=== PATIENT | male | born 1995 | race Caucasian/White ===

== ENCOUNTER 2016-11-18 21:37 | Emergency (ER) | payer OTHER ==
[2016-11-18 21:51] VITALS: TEMP 98.2
--- NOTE | 2016-11-18 21:52 | CPEKG ---
Heart Rate: 134 RR Interval: 448 P-R Interval: 120 QRSD Interval: 90 QT Interval: 312 QTC Interval: 466 P Vernon: 62 QRS Vernon: 153 T Wave Vernon: 52 EKG Severity - ABNORMAL ECG - EKG Impression: SINUS TACHYCARDIA EKG Impression: RIGHT AXIS DEVIATION EKG Impression: BORDERLINE Q WAVES IN INFERIOR LEADS EKG Impression: INFERIOR Q WAVES, PROBABLY NORMAL VARIATION Electronically Signed By: Giuliana Dietrich 18-Nov-2016 23:16:22
--- NOTE | 2016-11-18 22:02 | EDPHY ---
H & P Stated Complaint: Chest pain HPI/ROS: CHIEF COMPLAINT: Chest discomfort. HISTORY OF PRESENT ILLNESS: This patient is a 21 year old male complaining of chest discomfort and rapid heart rate developing over the past two days. He began a new dosage of Adderall at that time, switching from two 20mg IR tablets to one 30mg XR and one 10mg IR. He took his medication at 10:00 this morning. He initially developed chest discomfort and felt "weird" circulation in his arms, and then noted "electric" feelings in his chest intermittently. He endorses a dull chest pain which waxes and wanes. At dinner this evening, he noted his resting heart rate was around 170, and later seemed irregular. He asked his friends to walk him to the emergency department, and began "blacking out" and felt as if he might faint while walking. He states he lost his balance but denies falling. Currently, his chest feels tight and he continues to experience a rapid heart rate. He endorses nausea. He denies vomiting, shortness of breath, or other associated symptoms. He did consume some marijuana edibles this afternoon, but states he is confident about the dosage and his usual reactions to this. REVIEW OF SYSTEMS: A ten point review of systems was performed and is negative with the exception of the items mentioned in the HPI. Past medical history: ADHD (Adderall, followed by Dr. Miguel Luna). Past surgical history: Open femur fracture reduction. Family history: Noncontributory Social history: Nonsmoker. Occasional marijuana use. Denies illicit drug use. General Appearance: Alert. Vital signs reviewed. Blood pressure 162/109. Heart rate at triage 100, heart rate on EKG 134. Eyes: Pupils equal and round, no conjunctival injection, no discharge. Anicteric. ENT, Mouth: Mucous membranes are moist, no oropharyngeal erythema or edema. Neck: No lymphadenopathy, supple. Respiratory: Lungs are clear to auscultation; no wheezes, rales, or rhonchi. Cardiovascular: Tachycardic. Regular rhythm; no murmur, rub, or gallop. Gastrointestinal: Abdomen is soft and nontender, no masses or organomegaly, bowel sounds normal. Skin: Warm and dry, no rashes on exposed skin, normal color. Back: Nontender to palpation over the thoracolumbar spine. No CVAT. Extremities: No lower extremity edema, no calf tenderness or swelling. Neurological: Alert and oriented. Moving all four extremities easily and equally. Psychiatric: Normal affect. - Personal History Current Tetanus/Diphtheria Vaccine: Unsure Current Tetanus Diphtheria and Acellular Pertussis (TDAP): Unsure Tetanus Vaccine Date: < 10 YEARS - Medical/Surgical History Hx Asthma: No Hx Chronic Respiratory Disease: No Hx Diabetes: No Hx Cardiac Disease: No Hx Renal Disease: No Hx Cirrhosis: No Hx Alcoholism: No Hx HIV/AIDS: No Hx Splenectomy or Spleen Trauma: No Other PMH: ORIF left leg - Social History Smoking Status: Former smoker Constitutional: Initial Vital Signs Temperature (C) 36.8 C 11/18/16 21:41 Heart Rate 100 11/18/16 21:41 Respiratory Rate 16 11/18/16 21:41 Blood Pressure 162/109 H 11/18/16 21:41 O2 Sat (%) 98 11/18/16 21:41 O2 Delivery Mode Room Air Allergies/Adverse Reactions: No Known Allergies Allergy (Unverified 08/16/12 17:40) Home Medications: Medication Instructions Recorded Miscellaneous Medical Supply [NO 1 ea MISC AD 08/16/12 HOME MEDS] Medical Decision Making - Diagnostics EKG Interpretation: The 12 lead EKG was interpreted by myself: sinus tachycardia, rate 134. See hard copy and/or "tracemaster" electronic copy for interpretation. Imaging Results: Imaging Impressions Chest X-Ray 11/18/16 22:43 Impression: No acute abnormality. ED Course/Re-evaluation: 21 year old male presents with tachycardia and chest discomfort developing over the past two days. This may be related to a recently changed prescription for Adderall, which began shortly before symptom onset. Plan for EKG, labs including CBC, BMP, and Troponin. Plan to administer 1mg IV Ativan for symptom relief. EKG shows sinus tachycardia, rate 134. Patient was re-evaluated after receiving 1 L of IV fluids, 1 mg IV Ativan. He is feeling much calmer. Heart rate is between 100 and 110. Blood pressure 129/ 87. Labs reviewed and within normal limits. TSH pending. I suspect that his tachycardia and chest discomfort are secondary to the new Adderall XR. He has also had some edible marijuana this afternoon which might or might not be contributing. He took Adderall extended release approximately 12 hours ago. I do not find evidence of myocardial ischemia. No evidence of stroke. Half-life of this medication is 9-14 hours and I would expect his symptoms to begin to subside soon. He is comfortable returning home. He will contact his prescribing physician, Dr. Luna, tomorrow morning and let him know about the events of today. We reviewed the danger signs that should prompt him to return to the emergency department. Differential Diagnosis: Considered a differential diagnosis that includes but is not limited to medication effect, use of illicit substances, cardiac arrhythmia--atrial fibrillation/flutter, volume depletion, hyperthyroidism. - Data Points Laboratory Results: Laboratory Results 11/18/16 22:17 11/18/16 22:17 11/18/16 11/18/16 22: 22:17 WBC 8.16 10^3/uL 10^3/uL (3.80-9.50) RBC 6.06 10^6/uL 10^6/uL (4.40-6.38) Hgb 17.4 g/dL g/dL (13.7-17.5) Hct 50.3 % % (40.0-51.0) MCV 83.0 fL fL (81.5-99.8) MCH 28.7 pg pg (27.9-34.1) MCHC 34.6 g/dL g/dL (32.4-36.7) RDW 13.2 % % (11.5-15.2) Plt Count 316 10^3/uL 10^3/uL (150-400) MPV 10.1 fL fL (8.7-11.7) Neut % (Auto) 56.7 % % (39.3-74.2) Lymph % (Auto) 30.4 % % (15.0-45.0) [place] % (Auto) 11.4 % % (4.5-13.0) Eos % (Auto) 0.2 % L % (0.6-7.6) Baso % (Auto) 0.7 % % (0.3-1.7) Nucleat RBC Rel Count 0.0 % % (0.0-0.2) Absolute Neuts (auto) 4.62 10^3/uL 10^3/uL (1.70-6.50) Absolute Lymphs (auto) 2.48 10^3/uL 10^3/uL (1.00-3.00) Absolute Monos (auto) 0.93 10^3/uL H 10^3/uL (0.30-0.80) Absolute Eos (auto) 0.02 10^3/uL L 10^3/uL (0.03-0.40) Absolute Basos (auto) 0.06 10^3/uL 10^3/uL (0.02-0.10) Absolute Nucleated RBC 0.00 10^3/uL 10^3/uL (0-0.01) Immature Gran % 0.6 % % (0.0-1.1) Immature Gran # 0.05 10^3/uL 10^3/uL (0.00-0.10) Sodium 139 mEq/L mEq/L (134-144) Potassium 4.1 mEq/L mEq/L (3.5-5.2) Chloride 100 mEq/L mEq/L (97-110) Carbon Dioxide 23 mEq/l mEq/l (22-31) Anion Gap 16 mEq/L mEq/L (8-16) BUN 17 mg/dL mg/dL (7-23) Creatinine 0.8 mg/dL mg/dL (0.7-1.3) Estimated GFR > 60 Glucose 98 mg/dL mg/dL (70-100) Calcium 10.3 mg/dL mg/dL (8.5-10.4) Troponin I < 0.012 ng/mL ng/mL (0.000-0.034) Medications Given: Discontinued Medications Sodium Chloride (Ns) 1,000 mls @ 0 mls/hr IV EDNOW ONE; Wide Open PRN Reason: Protocol Stop: 11/18/16 22:15 Last Admin: 11/18/16 22:23 Dose: 1,000 mls Sodium Chloride (Ns) 1,000 mls @ 0 mls/hr IV ONCE ONE PRN Reason: Wide Open Stop: 11/18/16 23:16 Last Admin: 11/18/16 23:19 Dose: 1,000 mls Lorazepam (Ativan Injection) 1 mg IVP EDNOW ONE Stop: 11/18/16 22:15 Last Admin: 11/18/16 22:24 Dose: 1 mg Departure - Departure Disposition: Home, Routine, Self-Care Clinical Impression: Tachycardia Condition: Good Instructions: Tachycardia (ED) Additional Instructions: I think that your rapid heartbeat and chest discomfort are because of the Adderall XR that you took earlier. I would expect the effects of this medication to began to wear off shortly. However, you may continue to experience rapid heartbeat tonight. If you have persistent rapid heartbeat, feel lightheaded or faint, have persistent severe chest pain, or have trouble breathing you should return to the emergency department for another evaluation. You need to call your prescribing physician, Dr. Luna, tomorrow morning and let him know about the events of today. Do not take additional Adderall until you speak with Dr. Luna. Referrals: MIGUEL LUNA [Non Staff Provider ()] - As per Instructions Report Scribed for: Giuliana Dietrich Date of Report: 11/18/16 Physician Review and Approval Statement: 11/18/16 23:50 Portions of this note were transcribed by the medical assistant per diem. I, Dr. Giuliana Dietrich, personally performed the history, physical exam, and medical decision- making; and confirmed the accuracy of the information in the transcribed note.
[2016-11-18] MEDS ORDERED: NS 1,000 ML IV ONE ×2 (22:14→23:15)
[2016-11-18] MEDS ORDERED: LORazepam 2 MG/ML INJ IVP ONE (22:14)
[2016-11-18 22:24] LABS: % IMMATURE GRANULYOCYTES 0.6 % (0.0-1.1); ABSOLUTE IMMATURE GRANULOCYTES 0.05 10^3/uL (0.00-0.10); ADD DIFF? NO; ADD MORPH? NO; ADD SCAN? NO; ATYPICAL LYMPHOCYTE FLAG 10 (0-99); FRAGMENT RBC FLAG 0 (0-99); HEMATOCRIT 50.3 % (40.0-51.0); HEMOGLOBIN 17.4 g/dL (13.7-17.5); LEFT SHIFT FLG 0 (0-99); LIPEMIA HEMOLYSIS FLAG 90 (0-99); MEAN CELL HEMOGLOBIN 28.7 pg (27.9-34.1); MEAN CELL HEMOGLOBIN CONCENTR. 34.6 g/dL (32.4-36.7); MEAN PLATELET VOLUME 10.1 fL (8.7-11.7); PLATELET CLUMPS FLAG 30 (0-99); PLATELET COUNT 316 10^3/uL (150-400); RED BLOOD CELL COUNT 6.06 10^6/uL (4.40-6.38); RED CELL DISTRIBUTION WIDTH 13.2 % (11.5-15.2)
[2016-11-18 22:40] LABS: ANION GAP 16 mEq/L (8-16); CALCIUM 10.3 mg/dL (8.5-10.4); CARBON DIOXIDE 23 mEq/l (22-31); CHLORIDE 100 mEq/L (97-110); CREATININE 0.8 mg/dL (0.7-1.3); GLOMERULAR FILTRATION RATE > 60; GLUCOSE 98 mg/dL (70-100); POTASSIUM 4.1 mEq/L (3.5-5.2); SODIUM 139 mEq/L (134-144)
[2016-11-18 22:52] LABS: TROPONIN I < 0.012 ng/mL (0.000-0.034)
[2016-11-19 00:34] VITALS: BP 106/78; PULSE 89; RESP 14; O2SAT 96
== END 2016-11-19 00:31 | disposition home or self-care (01) ==
LOC: EDUNIT#
DX: R00.0 Tachycardia, unspecified (principal); E86.9 Volume depletion, unspecified; Z87.891 Personal history of nicotine dependence
CPT/HCPCS: J2060